=== PATIENT | female | born 1930 | race Caucasian/White ===

== ENCOUNTER 2016-04-03 10:16 | Outpatient (CLI) | payer OTHER ==
--- NOTE | 2016-04-03 12:14 | DIAGNOSTIC IMAGING REPORT ---
PROCEDURE: MG BILATERAL SCREENING W/CAD INDICATION: Screening. Family history breast carcinoma (aunt). TECHNIQUE: Bilateral CC and MLO digital views. COMPARISON: Compared to 02/24/2015, 12/17/2008, and 11/12/2006. FINDINGS: Computer-aided detection applied. Mildly dense. No change. There is a 4 cm x 0.5 cm electronic device in the medial left breast which obscures some detail (reported heart monitor - - no change). IMPRESSION: 1. Negative mammogram. RESULT CODE: 1- Negative. A. A negative report should not delay biopsy if a dominant or clinically suspicious mass is present. 10-15% of cancers are not identified by x-ray. B. A negative report may reinforce clinical impression. C. Adenosis and dense breasts may obscure an underlying neoplasm. D. False positive reports average 6-10%. E.. A yearly screening mammogram is recommended. A reminder letter will be scheduled.
[2016-05-17] MEDS ORDERED: CARVEDILOL25 MG PO ×2 (18:11)
[2016-05-17] MEDS ORDERED: DIGOXIN0.25 MG PO (18:12)
[2016-05-17] MEDS ORDERED: WARFARIN SODIUM5 MG PO (18:12)
[2016-05-17] MEDS ORDERED: SULFASALAZINE500 MG PO (18:13)
[2016-05-17] MEDS ORDERED: AMITRIPTYLINE H10 MG PO (18:13)
[2016-05-17] MEDS ORDERED: MULTIVITAMIN1 TAB PO (18:13)
[2016-05-17] MEDS ORDERED: VITAMIN D-31000 UNIT PO (18:14)
== END 2016-04-03 23:00 ==
LOC: MAM SRH 10:16
DX: Z12.31 Encounter for screening mammogram for malignant neoplasm of breast (principal); Z80.3 Family history of malignant neoplasm of breast

== ENCOUNTER 2016-05-22 10:44 | Day surgery (SDC) | payer OTHER ==
[~2016-05-22] VITALS: Ht 172.7 cm; Wt 84.8 kg
[~2016-05-22 10:44] MED LIST: AMITRIPTYLINE H10 MG PO; CARVEDILOL25 MG PO; DIGOXIN0.25 MG PO; MULTIVITAMIN1 TAB PO; SULFASALAZINE500 MG PO; VITAMIN D-31000 UNIT PO; WARFARIN SODIUM5 MG PO
--- NOTE | 2016-05-22 12:55 | Provider's Discharge Care Plan ---
Problem, Goal, Plan Problem List 1. S/P COLONOSCOPY Goals: Screening Instructions: Follow up as needed, Take meds as directed
--- NOTE | 2016-05-22 12:55 | Provider's Discharge Care Plan ---
Problem, Goal, Plan Problem List 1. S/P COLONOSCOPY Goals: Screening Instructions: Follow up as needed, Take meds as directed
--- NOTE | 2016-05-22 14:31 | OPERATIVE REPORT ---
DATE OF SURGERY: 05/22/2016 SURGEON: Foster Carrillo III, MD CHILD SUPPORT INVESTIGATOR: None. PREOPERATIVE DIAGNOSIS: 1. History of polyps POSTOPERATIVE DIAGNOSIS: 1. Normal colonoscopy PROCEDURE PERFORMED: 1. Colonoscopy ANESTHESIA: TIVA. INDICATIONS: The patient is an 85-year-old female who had her initial colonoscopy in 2006. At that time, she had 3 polyps removed. Her last colonoscopy in 2010 was normal. She returns now for surveillance screening. The patient is presently on Coumadin with an INR of 1.6. SURGICAL FINDINGS: The cecum was not truly visualized. Normal-appearing right colon, the remaining ascending, transverse, descending, sigmoid colon, and rectal vault. The patient had a very tortuous, elongated colon, making it very difficult to identify the cecum. SURGICAL TECHNIQUE: The patient was brought to the operating room and placed in the left lateral decubitus position, where she was administered TIVA and monitored closely by anesthesia. After proper anesthesia had taken effect, a digital rectal examination revealed no masses or stenosis. This was followed by the passage of a fiberoptic video flexible Olympus colonoscope which, with considerable difficulty secondary to the tortuosity, negotiated to the right colon. Although we could see lumen, we could not advance the scope any further, secondary to either a castillo loop or running out of true scope. In spite of repeated efforts of withdrawing the scope and replacing it and positioning the patient and applying manual pressure, we could not advance the scope any further. Therefore, rather than risk injury to the colon, with the patient on Coumadin, the scope was withdrawn, retroflexed, and good view of the rectal vault obtained. No pathology identified. The scope was completely withdrawn. The patient tolerated the procedure well and was transferred to the recovery room in stable condition. There were no intraoperative or anesthetic complications.
[2016-05-22 14:33] VITALS: BP 144/86
== END 2016-05-22 14:30 | disposition home or self-care (01) ==
LOC: OR SRH 10:44 → OB SRH 10:44 → OR SRH 11:00
PROVIDERS: Specialist
PROC: 0DJD8ZZ Inspection of Lower Intestinal Tract, Via Natural or Artificial Opening Endoscopic (ICD-10-PCS; principal; 2016-05-22 11:00)
DX: Z12.11 Encounter for screening for malignant neoplasm of colon (principal); Z86.010 Personal history of colon polyps; K63.89 Other specified diseases of intestine; Z79.01 Long term (current) use of anticoagulants; I48.91 Unspecified atrial fibrillation